=== PATIENT | male | born 1985 | race African-American/Black ===

== ENCOUNTER 2019-03-05 16:28 | Inpatient (IN) ==
[2019-03-05] MEDS ORDERED: CHARCOAL AQUEOUS 25 GM/120 ML BOTTLE ONE (16:48)
[2019-03-05] MEDS ORDERED: CHARCOAL AQUEOUS 25 GM/120 ML BOTTLE PO STA (16:52)
[2019-03-05] MEDS ORDERED: ONDANSETRON 4 MG/2 ML VIAL IV STA (16:52)
[2019-03-05] MEDS ORDERED: SODIUM CHLORIDE 0.9% 1,000 ML IV STA (16:52)
[2019-03-05] MEDS ORDERED: SORBITOL 30 ML BOTTLE PO SCH (17:00)
[2019-03-05 17:24] LABS: Apearance,Urine CLEAR (Clear); Bilirubin,Urine Negative (Negative); Blood, Urine Negative (Negative); Glucose,Urine (UA) Negative (Negative); Ketones,Urine 5 mg/dL (Negative); Mucus,Urine Moderate /LPF (Occasional); Nitrite,Urine Negative (Negative); Protein,Urine Negative; RBC,Urine 1 /HPF (0-4); Squamous Epithelial Cell,Urine Occasional /HPF (0-10); Urine Color Yellow (Yellow); Urine Specific Gravity 1.027 (1.001-1.035); WBC,Urine 1 /HPF (0-6)
[2019-03-05 17:37] LABS: Basophils % 0.3 % (0.0-0.8); Eosinophils # 0.1 10*3/uL (0.0-0.87); Eosinophils % 1.8 % (0.00-10.9); Hematocrit 47.9 VOL% (42.0-52.0); Hemoglobin 14.6 GM/DL (14.0-18.0); Immature Granulocytes % 0.4 %; Immature Granulocytes Absolute 0.03 #; Lymphocytes # 2.5 10*3/uL (1.4-4.0); Lymphocytes % 36.5 % (21.2-54.2); Mean Corpuscular HGB Conc 30.5 GM/DL (32-36); Mean Corpuscular Volume 77.1 FL (87-102); Mean Platelet Volume 11.6 FL (9.6-12.0); Monocytes % 9.9 % (1.7-12.7); Neutrophils % 51.1 % (38.7-73.9); Platelet Count 242 T/CUMM (130-400); Red Blood Count 6.21 MC/CUMM (3.8-5.5); Red Cell Distribution Width 16.5 % (9.3-17.3); White Blood Count 6.8 T/CUMM (4-12)
[2019-03-05] MEDS ORDERED: SORBITOL 30 ML BOTTLE PO STA (17:40)
[2019-03-05 17:42] LABS: Barbiturates Screen,Urine Negative (Negative); Benzodiazepines Screen,Urine Negative (Negative); Cannabinoid Screen,Urine Positive (Negative); Opiate Screen,Urine Negative (Negative); Phencyclidine Screen,Urine Negative (Negative)
[2019-03-05 17:47] LABS: Alanine Aminotransferase 22 U/L (16-61); Albumin 3.8 G/DL (3.4-5.0); Alkaline Phosphatase 70 U/L (45-117); Aspartate Amino Transferase 16 U/L (0-37); Blood Urea Nitrogen 12 MG/DL (7-18); Calcium 8.7 MG/DL (8.5-10.1); Glucose 108 MG/DL (74-106); Osmolality,Calculated 281.3 MOS/KG (273-304); Total Protein 7.7 G/DL (6.4-8.3)
[2019-03-05] MEDS ORDERED: ACETYLCYSTEINE INJ 15,000 MG in DEXTROSE 5% 100 ML IV ONE (20:41)
[2019-03-05] MEDS ORDERED: DEXTROSE 5% IV ONE (21:00)
[2019-03-05] MEDS ORDERED: ACETYLCYSTEINE IV ONE (21:00)
[2019-03-05] MEDS ORDERED: ACETYLCYSTEINE INJ 5,000 MG in DEXTROSE 5% 250 ML IV ONE (22:30)
[2019-03-06] MEDS ORDERED: NICOTINE 21 MG/24 HR PATCH TRANSDERM PRN (01:00)
[2019-03-06] MEDS ORDERED: ONDANSETRON 4 MG/2 ML VIAL IV PRN (01:00)
[2019-03-06] MEDS: SODIUM CHLORIDE 0.9% 1,000 ML IV SCH ×5 (01:56→21:49)
[2019-03-06 01:57] LABS: Basophils % 0.3 % (0.0-0.8); Hematocrit 48.1 VOL% (42.0-52.0); Hemoglobin 14.4 GM/DL (14.0-18.0); Immature Granulocytes % 0.3 %; Immature Granulocytes Absolute 0.02 #; Lymphocytes # 1.4 10*3/uL (1.4-4.0); Lymphocytes % 23.2 % (21.2-54.2); Mean Corpuscular HGB Conc 29.9 GM/DL (32-36); Mean Corpuscular Volume 77.3 FL (87-102); Mean Platelet Volume 10.4 FL (9.6-12.0); Neutrophils % 69.2 % (38.7-73.9); Platelet Count 223 T/CUMM (130-400); Red Blood Count 6.22 MC/CUMM (3.8-5.5); Red Cell Distribution Width 16.8 % (9.3-17.3); White Blood Count 5.9 T/CUMM (4-12)
[2019-03-06 02:12] LABS: Albumin 3.7 G/DL (3.4-5.0); Bilirubin,Total 1.4 MG/DL (0.2-1.0); Calcium 8.8 MG/DL (8.5-10.1); Osmolality,Calculated 282.1 MOS/KG (273-304); Total Protein 7.8 G/DL (6.4-8.3)
[2019-03-06 02:18] LABS: INR 1.2; PT Patient Result 12.8 SECS (9.6-12.2)
[2019-03-06] MEDS ORDERED: ACETYLCYSTEINE INJ 10,000 MG in DEXTROSE 5% 1,000 ML IV ONE (04:00)
[2019-03-06] MEDS: ENOXAPARIN 40 MG/0.4 ML SYRINGE SUBCUT SCH (09:54)
[2019-03-06 15:47] LABS: Albumin 3.1 G/DL (3.4-5.0); Bilirubin,Direct 0.21 MG/DL (0.0-0.20); Bilirubin,Total 1.2 MG/DL (0.2-1.0); Total Protein 6.7 G/DL (6.4-8.3)
[2019-03-06 17:27] LABS: INR 1.2; PT Patient Result 12.9 SECS (9.6-12.2); Partial Thromboplastin Time 26.4 SECS (20.8-36.0)
[2019-03-06] MEDS: AMITRIPTYLINE 25 MG TABLET PO SCH (21:12)
[2019-03-07] MEDS: SODIUM CHLORIDE 0.9% 1,000 ML IV SCH ×3 (02:28→09:11)
[2019-03-07 04:57] LABS: Basophils % 0.6 % (0.0-0.8); Eosinophils # 0.1 10*3/uL (0.0-0.87); Eosinophils % 2.1 % (0.00-10.9); Hematocrit 41.8 VOL% (42.0-52.0); Hemoglobin 12.9 GM/DL (14.0-18.0); Immature Granulocytes % 0.2 %; Immature Granulocytes Absolute 0.01 #; Lymphocytes # 3.2 10*3/uL (1.4-4.0); Lymphocytes % 50.6 % (21.2-54.2); Mean Corpuscular HGB Conc 30.9 GM/DL (32-36); Mean Corpuscular Volume 76.4 FL (87-102); Mean Platelet Volume 10.4 FL (9.6-12.0); Monocytes % 7.1 % (1.7-12.7); Neutrophils % 39.4 % (38.7-73.9); Platelet Count 188 T/CUMM (130-400); Red Blood Count 5.47 MC/CUMM (3.8-5.5); Red Cell Distribution Width 15.4 % (9.3-17.3); White Blood Count 6.2 T/CUMM (4-12)
[2019-03-07 05:30] LABS: Albumin 2.7 G/DL (3.4-5.0); Bilirubin,Total 0.7 MG/DL (0.2-1.0); Calcium 7.7 MG/DL (8.5-10.1); Total Protein 5.7 G/DL (6.4-8.3)
[2019-03-07] MEDS ORDERED: BUTALBITAL/ACETAMIN/CAFFEINE 50-325-40 MG TABLET PO PRN (09:08)
[2019-03-07] MEDS: ENOXAPARIN 40 MG/0.4 ML SYRINGE SUBCUT SCH (09:16)
[2019-03-07] MEDS: AMITRIPTYLINE 25 MG TABLET PO SCH (21:10)
[2019-03-08 04:41] LABS: Basophils % 0.4 % (0.0-0.8); Eosinophils # 0.1 10*3/uL (0.0-0.87); Eosinophils % 2.3 % (0.00-10.9); Hematocrit 42.6 VOL% (42.0-52.0); Immature Granulocytes % 0.2 %; Immature Granulocytes Absolute 0.01 #; Lymphocytes # 2.5 10*3/uL (1.4-4.0); Lymphocytes % 45.2 % (21.2-54.2); Mean Corpuscular HGB Conc 30.5 GM/DL (32-36); Mean Corpuscular Volume 76.6 FL (87-102); Mean Platelet Volume 11.1 FL (9.6-12.0); Monocytes % 8.6 % (1.7-12.7); Neutrophils % 43.3 % (38.7-73.9); Platelet Count 207 T/CUMM (130-400); Red Blood Count 5.56 MC/CUMM (3.8-5.5); Red Cell Distribution Width 15.4 % (9.3-17.3); White Blood Count 5.6 T/CUMM (4-12)
[2019-03-08 05:13] LABS: Bilirubin,Total 1.9 MG/DL (0.2-1.0); Calcium 8.2 MG/DL (8.5-10.1); Osmolality,Calculated 275.4 MOS/KG (273-304)
[2019-03-08] MEDS: ENOXAPARIN 40 MG/0.4 ML SYRINGE SUBCUT SCH (09:48)
[2019-03-08] MEDS: AMITRIPTYLINE 25 MG TABLET PO SCH (21:00)
[2019-03-09 06:07] LABS: Albumin 3.1 G/DL (3.4-5.0); Bilirubin,Total 0.8 MG/DL (0.2-1.0); Calcium 8.2 MG/DL (8.5-10.1); Total Protein 6.2 G/DL (6.4-8.3)
[2019-03-09] MEDS: ENOXAPARIN 40 MG/0.4 ML SYRINGE SUBCUT SCH (09:36)
[2019-03-09 16:05] VITALS: BP 125/74
== END 2019-03-09 17:15 | disposition home or self-care (01) | DRG 918 ==
LOC: N.ED 16:28 → N.EDINP 16:28 → OBSVTOIN 22:33 → SUATTDRO 22:33 → N.ICU 03-06 00:50 → N.4E 03-07 13:38
PROVIDERS: ADMIT Internal Medicine; ATTEND Internal Medicine